=== PATIENT | male | born 2005 | race Two or more races ===

== ENCOUNTER 2023-07-10 22:41 | Emergency (ER) | payer MEDICAID, SELFPAY ==
[2023-07-10 22:44] VITALS: BP 161/88; PULSE 97; RESP 18; TEMP 36.9; O2SAT 97; BMI 39.3
--- OUTSIDE RECORDS SUMMARY | 2023-07-11 01:47 | XMS_ITS | Continuity of Care Document ---
Author Name Unknown Organization [facility] Address [address] [place] [address]- Care Team Providers Care Shearing Shed Worker Name Role Phone Slick CHEEK, Steve Batista Primary Care Physician Encounter [facility] [place] Date(s): 07/05/20 - 08/04/20 [facility] [address] [place] [id number]- Allergies, Adverse Reactions, Alerts Substance Reaction Severity Status NKA Active Medications dicyclomine 20 mg oral tablet 1 tablet = 20 mg, By Mouth, 2 times a day, # 180 tablet, 0 Refills, Maintenance, 07/03/19 15:57:03 EST Start Date: 07/03/19 Status: Ordered Social History Social History Type Response Smoking Status Never (less than 100 in lifetime); Tobacco user in household: No entered on: 07/03/19 Sex
--- OUTSIDE RECORDS SUMMARY | 2023-07-11 01:47 | XMS_ITS | Continuity of Care Document ---
Author Name Unknown Organization [facility] Address [address] [place] [address]- Care Team Providers Care Certified Low Vision Therapist Name Role Phone Slick CHEEK, Steve Batista Primary Care Physician [phone] Encounter [facility] [place] Date(s): 07/05/20 - 08/04/20 [facility] [address] [place] [address]- Allergies, Adverse Reactions, Alerts Substance Reaction Severity [...]
--- OUTSIDE RECORDS SUMMARY | 2023-07-11 01:47 | XMS_ITS | Continuity of Care Document ---
Author Name Unknown Organization [facility] Address Unknown Care Team Providers Care Diplomatic Interpreter Name Role Phone Slick CHEEK, Steve Batista Primary Care Physician [phone] Encounter [facility] – [place] Date(s): 04/11/21 - 05/11/21 [facility] [address] [place], [place] [address] Allergies, Adverse Reactions, Alerts Substance Reaction Severity Status NKA Active Medications dicyclomine 20 mg oral tablet 1 tablet = 20 mg, By Mouth, 2 times a day, # 180 tablet, 0 Refills, Maintenance, 07/03/19 15:57:03 EST Start Date: 07/03/19 Status: Ordered Vitamin D3 50,000 intl units oral capsule 1 capsule = 1,250 mcg, By Mouth, Every week, Please go for blood work after the 12 weeks are completed, # 12 capsule, 0 Refills, Maintenance, 04/11/21 13:48:00 EDT, [id number], Partial fill upon patient request if the prescription is... Start Date: 04/11/21 Stop Date: 07/04/21 Status: Ordered Social History Social History Type Response Smoking Status Never (less than 100 in lifetime); Tobacco user in household: No entered on: 07/03/19 Sex
--- OUTSIDE RECORDS SUMMARY | 2023-07-11 01:47 | XMS_ITS | Continuity of Care Document ---
Author Name Unknown Organization [facility] Address Unknown Care Team Providers Care Rail Transportation Tabeler Name Role Phone Slick CHEEK, Steve Batista Primary Care Physician Encounter [facility] [place] Date(s): 03/16/21 - 04/15/21 [facility] Attending Physician: Js Koehler Admitting Physician: Js Koehler Referring Physician: Js Koehler Allergies, Adverse Reactions, Alerts Substance Reaction Severity [...] capsule, 0 Refills, Maintenance, 04/11/21 13:48:00 EDT, [facility] #[id number], Partial fill upon patient request if the prescription is... Start Date: 04/11/21 Stop Date: 07/04/21 Status: Ordered Social History Social History Type Response Smoking Status Never (less than 100 in lifetime); Tobacco user in household: No entered on: 07/03/19 Sex
--- OUTSIDE RECORDS SUMMARY | 2023-07-11 01:47 | XMS_ITS | Continuity of Care Document ---
Author Name Unknown Organization [facility] Address [address] [place] [address]- Care Team Providers Care Clinical Assistant Name Role Phone Slick CHEEK, Steve Batista Primary Care Physician Encounter [facility] Date(s): 12/31/20 - 01/30/21 [facility] [address] [place] [id number] Attending Physician: Js Koehler Admitting Physician: AdmJs lopez Referring Physician: Admtr, Ar8 Allergies, Adverse Reactions, Alerts Substance Reaction Severity [...]
--- OUTSIDE RECORDS SUMMARY | 2023-07-11 01:47 | XMS_ITS | Continuity of Care Document ---
Author Name Unknown Organization [facility] Address [address] [place] [address]- Care Team Providers Care Animal Sitter Name Role Phone Slick CHEEK, Steve Batista Primary Care Physician Encounter [facility] [place] Date(s): 06/30/20 - 07/30/20 [facility] [address] [place] [phone]- Attending Physician: Js Koehler Admitting Physician: Js Koehler Referring Physician: Admtr Ar8 Allergies, Adverse Reactions, Alerts Substance Reaction [...]
--- OUTSIDE RECORDS SUMMARY | 2023-07-11 01:47 | XMS_ITS | Continuity of Care Document ---
Author Name Unknown Organization [facility] Address [address] [place] [address]- Care Team Providers Care Regulatory Analyst Name Role Phone Slick CHEEK, Steve Batista Primary Care Physician [place] [facility] [place] 01/30/21 [facility] [address] [place] [phone]- Attending Physician: Doris Gambino NP Admitting Physician: Doris Gambino NP Allergies, Adverse Reactions, Alerts Substance Reaction Severity [...]
--- OUTSIDE RECORDS SUMMARY | 2023-07-11 01:47 | XMS_ITS | Continuity of Care Document ---
Author Name Unknown Organization [facility] Address Unknown Care Team Providers Care Camp Nurse Name Role Phone Slick CHEEK, Steve Batista Primary Care Physician Encounter [facility] [place] Date(s): 04/11/21 - 05/11/21 [facility] [address] [place], [place] [address] Allergies, Adverse Reactions, Alerts Substance Reaction Severity [...] capsule, 0 Refills, Maintenance, 04/11/21 13:48:00 EDT, [facility] #[id number], Partial fill upon patient request if the prescription is... Start Date: 04/11/21 Stop Date: 07/04/21 Status: Ordered Social History Social History Type Response Smoking Status Never (less than 100 in lifetime); Tobacco user in household: No entered on: 07/03/19 Sex
--- OUTSIDE RECORDS SUMMARY | 2023-07-11 01:47 | XMS_ITS | Continuity of Care Document ---
Author Name Unknown Organization [facility] Address [address] [place] [address]- Care Team Providers Care Manager Data Warehouse Name Role Phone Slick CHEEK, Steve Batista Primary Care Physician Encounter [facility] [place] Date(s): 07/26/20 - 08/25/20 [facility] [address] [place] [phone]- Allergies, Adverse Reactions, Alerts Substance Reaction Severity [...]
--- OUTSIDE RECORDS SUMMARY | 2023-07-11 01:47 | XMS_ITS | Continuity of Care Document ---
Author Name Unknown Organization [facility] Address [address] [place] [phone]- Care Team Providers Care Teacher Instrumental Name Role Phone Steve Kruger MD Primary Care Physician Encounter [facility] Date(s): 07/24/19 - 07/24/[address] [address]- [facility] Attending Physician: Steve Kruger MD Allergies, Adverse Reactions, Alerts Substance Reaction Severity [...]
--- OUTSIDE RECORDS SUMMARY | 2023-07-11 01:47 | XMS_ITS | Continuity of Care Document ---
Author Name Unknown Organization [facility] Address [address] [place] [address]- Care Team Providers Care Learning And Development Director Name Role Phone Slick CHEEK, Steve Batista Primary Care Physician [id number] Date(s): 12/31/20 - 03/20/21 [facility] [address] [place] [address]- Attending Physician: Doris Gambino NP Admitting Physician: [...]
--- OUTSIDE RECORDS SUMMARY | 2023-07-11 01:47 | XMS_ITS | Continuity of Care Document ---
Author Name Unknown Organization [facility] Address [address] [place] [address]- Care Team Providers Care Tufting Supervisor Name Role Phone Slick CHEEK, Steve Batista Primary Care Physician [place] [facility] [place]s): 07/05/20 - 08/04/20 [facility] [address] [place] [phone]- Allergies, Adverse Reactions, Alerts Substance Reaction Severity [...]
--- NOTE | 2023-07-11 01:51 | ED.EAR ---
HPI - Ear Problem General Chief complaint: Ear Problems Stated complaint: left ear pain Time Seen by Provider: 07/11/23 01:46 Source: patient Mode of arrival: ambulatory Limitations: no limitations History of Present Illness HPI Narrative: patient comes to the emergency room complaining of left-sided ear pain that started about 5 hours ago. Patient denies any injury to the ear, denies swimming. Patient states that initially started out as itchy, then became pain. Patient took pain medication prior to arrival, feeling a bit better, but still painful. Patient denies any discharge. Patient denies headache, no sore throat Related Data Previous Rx's Medication Instructions Recorded acetic acid 2 % ear solution 3 drp otic (ear) left Q6H #15 mL 07/11/23 amoxicillin 500 mg-potassium 1 tab PO BID #10 tabs 07/11/23 clavulanate 125 mg tablet (Augmentin) ibuprofen 600 mg tablet 600 mg PO TID PRN fever or pain 07/11/23 #14 tabs Allergies Allergy/AdvReac Type Severity Reaction Status Date / Time No Known Allergies Allergy Verified 07/10/23 22:48 Review of Systems Review of Systems: Constitutional : No Weight loss, No Fever, No Chills, No Night Sweats, No Fatigue, No Malaise ENT/Mouth : No Hearing loss, complaining of left-sided Ear Pain, No Nasal Congestion, No Sinus Pain, No Hoarseness, No sore throat, No Rhinorrhea, No Swallowing Difficulty Eyes: No Eye Pain, No Swelling, No Redness, No Foreign Body, No Discharge, No Vision Changes Cardiovascular : No Chest Pain, No SOB, No Dyspnea on Exertion, No Orthopnea, No Edema, No Palpitations Respiratory : No Cough, No Sputum, No Wheezing, No Smoke Exposure, No Dyspnea Gastrointestinal : No Nausea, No Vomiting, No Diarrhea, No Constipation, No abdominal Pain, No Hematochezia, No Melena Genitourinary : no irregular bleeding, No Dysuria, No Urinary Frequency, No Hematuria, No Urinary Incontinence, No Urgency, No Flank Pain, No Urinary Flow Changes, No Hesitancy Musculoskeletal : No joint pain, No Myalgias, No Joint Swelling Skin : No Skin Lesions, No rash Neuro : No Weakness, No Numbness, No Paresthesias, No Loss of Consciousness, No Dizziness, No Headache Psych : No Anxiety/Panic, No Depression, No SI/HI/AH/VH, No Social Issues, Heme/Lymph: No Bruising, No Bleeding,No Lymphadenopathy Endocrine : No Polyuria, No Polydipsia, No Temperature Intolerance [facility] Social History Social History Advance Directives: No Advance Directives Information Provided: No Physical Exam Vital Signs: Vital Signs: Last Vital Signs Temp 98.5 F 07/10/23 22:44 Pulse 97 07/10/23 22:44 Resp 18 07/10/23 22:44 BP 161/88 H 07/10/23 22:44 Pulse Ox 97 07/10/23 22:44 O2 Del Method Room Air 07/10/23 22:44 BMI result Body Mass Index 39.3 Const: Other: Appearance: Alert. Oriented X3. No acute distress. Eyes: Pupils equal, round and reactive to light. ENT: Pharynx normal. ready within normal limits, left ear the sub bit of whitish yellowish discharge and mild erythema in the tympanic membrane, no perforation Neck: Normal inspection. Neck supple. No lymph nodes noted. No crepitus CVS: Normal heart rate and rhythm. Pulses normal. Normal S1 and S2 Respiratory: No respiratory distress. Breath sounds normal. No Wheezing. No rales Abdomen: Soft and nontender. No rigidity. No distention. Skin: Skin warm and dry. Normal skin color. Normal skin turgor. Extremities: No lower extremity edema. No Lacerations. No Rash Neuro: Oriented X 3. No motor deficit. No sensory deficit. Moving all extremities. No slurred speech. CN 2 through 12 grossly intact Psych: calm, cooperative, normal affect Medical Decision Making Medical Decision Making MDM Narrative: - I discussed the physical exam with the patient, patient likely having otitis media. Patient was given a dose of ibuprofen in the ED. Patient will go filler picker his medication a 24 hour pharmacy Differential Diagnosis Differential Diagnoses: The differential diagnosis associated with the presentation includes ( otitis media, otitis externa, otalgia) Discharge Plan Discharge Clinical Impression: Otitis media Patient Disposition: Home, Self-Care Instructions: Ear Infection (ED) Additional Instructions: Please follow-up with your primary care physician tomorrow. If you have any worsening or new symptoms, please return to the emergency room or call 911 Prescriptions: New amoxicillin-pot clavulanate [Augmentin] 500-125 mg tablet 1 tab PO BID Qty: 10 0RF acetic acid 2 % solution 3 p otic (ear) left Q6H Qty: 15 0RF Rx Instructions: apply to (cotton) wick; replace wick every 24 hours ibuprofen 600 mg tablet 600 mg PO TID PRN (Reason: fever or pain) Qty: 14 0RF
[2023-07-11 02:01] VITALS: BP 140/84; PULSE 94; RESP 18; TEMP 36.8; O2SAT 97
== END 2023-07-11 02:05 | disposition home or self-care (01) ==
PROVIDERS: Emergency Provider Emergency Medicine
DX: H66.92 Otitis media, unspecified, left ear (principal); H92.02 Otalgia, left ear
CPT/HCPCS: 99283

== ENCOUNTER 2024-02-08 15:53 | Outpatient (AMB) | payer OTHER, SELFPAY ==
--- NOTE | 2024-02-08 16:03 | A.OFFPC_ITS ---
Vital Signs 02/08/24 16:12 Height 5 ft 10.98 in Weight 278 lb 4 oz BMI 38.8 BP 112/72 Blood Pressure Location Lt brachial Position Sitting Pulse 89 Pulse Source Pulse Oximeter Temp 98.1 F Temp Source Oral Pulse Oximetry (%) 97 Oxygen Delivery Method Room Air Intake Visit Reasons: Establish Care Intake Note: patient here for new patient visit. Legal Biller Required: No Oven Stripper: Present Accompanied by: Mother Followed by:: res habilitation assistant present for exam. Allergies No Known Allergies Allergy (Verified 02/08/24 16:08) Medication List - Last Reconciled 02/08/24 by JOCE Grande No Known Home Meds Tobacco use date assessed: 02/08/24 Dental Screening Dental Screen Date: 02/08/24 Did you have a dental visit in the last 12 months?: Yes Did you have a dental problem in the last 6 months where you did not have access to dental care?: No Was dental information given to patient?: Patient has dentist HPI HPI Comments History of Present Illness Details This is a 19-year-old male with a past medical history of fatty liver disease, severe obesity, hyperlipidemia and vitamin-D deficiency presenting to [facility]. He needs a physical exam today. He is accompanied by his mother, Donna. Fatty liver disease-last seen by GI 2-3 years ago. Patient eats a lot of fast food. He usually skips breakfast. Drinks strictly water during the day. He has never seen a matrix bath operator. They would like his vitamin-D level checked. He has not currently on supplements. Hyperlipidemia-no recent labs. Nonsmoker. Endorses depression-a couple months. He is unhappy about his weight. Feels distant from mother. They argue a bit at home. Two younger brothers RN the house ages 13 and 9 years old. Feels unhappy. Sleeps well at night. Plays video games, occasionally goes out endplates frisbee and basketball. He has a female best friend , and they talk a lot. He worries about a lot of different things. No panic attacks. Denies illegal substance use, alcohol use. Interested in seeing a therapist. Left ear is itchy x months. He had ear pain at one point, and he was treated with ear drops for an infection. [facility] Medical History (Updated 02/08/24 @ 17:10 by JOCE Grande) Acanthosis nigricans Dermatitis of left ear canal Obesity (BMI 30-39.9) Hyperlipidemia Vitamin D deficiency Depression with anxiety Hepatic steatosis Surgical History (Updated 02/08/24 @ 16:22 by JOCE Grande) History of wisdom tooth extraction Family History (Updated 02/08/24 @ 17:02 by JOCE Grande) Paternal Grandfather Liver cancer Other Alcohol abuse Social History Housing: Apartment Patient Tobacco Use Status: Never used Tobacco e-Cigarette/Vaping Use: Never Used Second Hand Smoke Exposure: No service: No Current occupational status: employed Current occupation: [employer] Current occupational exposures/hazards: No Cognitive needs: No Hearing needs: No Vision needs: No Questionnaire PHQ-9 Over the last 2 weeks, how often have you been bothered by any of the following problems? 1. Little interest or pleasure in doing things: several days 2. Feeling down, depressed, or hopeless: more than half the days 3. Trouble falling or staying asleep, or sleeping too much: not at all 4. Feeling tired or having little energy: nearly every day 5. Poor appetite or overeating: more than half the days 6. Feeling bad about yourself - or that you are a failure or have let yourself or your family down: several days 7. Trouble concentrating on things, such as reading the newspaper or watching television: not at all 8. Moving or speaking so slowly that other people could have noticed. Or the opposite - being so fidgety or restless that you have been moving around a lot more than usual: not at all 9. Thoughts that you would be better off or of hurting yourself in some way: not at all Total score: 9 Depression Screening Interpretation: Positive (Referral placed) Depression Screening Done: Yes 32575 - PHQ-9 Billing: Yes Source: Developed by Drs. Jim Conway, Evelyn Levin, Diaz Osborn and colleagues, with an educational anita from [employer]. Thrive Questionnaire Date Thrive assessed: 02/08/24 I am a: Patient What is your living situation today?: I have a steady place to live Do you have trouble paying for medicines?: No Do you have trouble getting transportation to medical appointments?: No Do you have trouble paying your heating and electricity bill?: No Do you have trouble taking care of your child, family member or friend?: No Do you have trouble with day-to-day activities such as bathing, preparing meals, shopping, managing finances, etc.?: No Are you currently unemployed and looking for a job?: No Are you interested in more education?: No Please select the resources that you would like help with: None Currently or been in a relationship where the following occur: No concerns reported THRIVE Score: 0 AUDIT C Alcohol Use Questionnaire (AUDIT-C) 1. How often do you have a drink containing alcohol?: Never Total Score: 0 TRINA-7 AMB Questionnaire TRINA-7 Date TRINA - 7 assessed: 02/08/24 Feeling nervous, anxious, or on edge: 0 = Not at all Not being able to stop or control worryin = Not at all Worrying too much about different things: 1 = Several days Trouble relaxin = Not at all Being so restless that it is hard to sit still: 0 = Not at all Becoming easily annoyed or irritable: 1 = Several days Feeling afraid as if something awful might happen: 0 = Not at all Total TRINA-7 score (0-4 normal; 5-9 mild; 10-14 moderate; 15-21 severe): 2 Source: Developed by Drs. Jim Conway, Evelyn Levin, Diaz Osborn and colleagues, with an educational anita from [employer]. TRINA-7 Assessment Billing TRINA-7 Assessment Tool: TRINA-7 Assessment 99207 Review of Systems Const Details: Constitutional: No unexplained weight loss, fever, chills or night sweats. Eyes: No vision changes, blurry vision, double vision, eye pain, eye redness, eye discharge. ENT: No hearing loss, sneezing, congestion, runny nose or sore throat. Respiratory: No shortness of breath, cough or sputum production. Cardiovascular: No chest pain, chest pressure or chest discomfort. No palpitations or pedal edema. Gastrointestinal: No anorexia, nausea, vomiting or diarrhea. No abdominal pain or blood in stool. Genitourinary: No dysuria, hematuria, urinary frequency. Neurologic: No headache, dizziness, syncope, unilateral weakness, ataxia, numbness or tingling in the extremities. Musculoskeletal: No muscle pain, back pain, joint pain or swelling. Hematologic/Lymphatics: No bleeding or bruising. No painful lymph nodes. Skin: see HPI Endocrine: No cold or heat intolerance. No polyuria or polydipsia. Psychiatric: No SI/HI. Physical exam (Primary Care) Vital Signs: Last Vital Signs Temp 98.1 F 02/08/24 16:12 Pulse 89 02/08/24 16:12 BP 112/72 02/08/24 16:12 Pulse Ox 97 02/08/24 16:12 Oxygen Delivery Method Room Air 02/08/24 16:12 BMI result Body Mass Index 38.8 Tobacco/Smoking Status: Tobacco use Status Tobacco use date assessed 02/08/24 02/08/24 16:11 Patient Tobacco Use Status Never used Tobacco 02/08/24 16:11 e-Cigarette/Vaping Use Never Used 02/08/24 16:11 Depression Screening Interpretation: Positive (Referral placed) Currently or been in a relationship where the following occur: No concerns reported Const Other: Constitutional: Alert, in no distress. Head: Normocephalic. Eyes: Pupils are equal, round and reactive to light. Extraocular muscles intact. Ear, Nose and Throat: TMs normal. Normal nasal mucosa. No nasal discharge. No oral lesions. Neck: Supple, Full range of motion. No lymphadenopathy. No palpable thyroid masses. Respiratory: Clear to auscultation. Cardiovascular: S1 S2 regular. No murmurs. Gastrointestinal: Abdomen soft, non-tender, non-distended. Normal bowel sounds. No palpable masses. Genitourinary: No detectable hernias or palpable masses. Neurologic: No focal neurological deficits. Symmetric patellar reflexes. Moves all extremities spontaneously. Sensation intact bilaterally. Skin: Acanthosis nigricans rash noted on the neck. The left ear canal has dry, flaking skin and mild erythema. Musculoskeletal: No gross deformities. Normal range of motion. Extremities: Warm and well perfused. No clubbing, cyanosis or edema. 3+ peripheral pulses bilaterally. Psychiatric: Normal mood and affect Assessment and Plan Assessment & Plan (1) Routine physical examination: Code(s): Z00.00 - Encounter for general adult medical examination without abnormal findings Plan: Patient is seen today for a routine physical. As part of this visit we reviewed the following issues, which are considered and essential part of preventative health in this age group: - Testicular cancer screening, which includes self exam teaching - Blood pressure screening annually - Cholesterol screening - Nutritional and exercise counseling - Counseling of injury prevention including fire prevention, smoke alarms and seat belt usage - Screening for depression - Prevention of and/or testing for infectious diseases - patient has been sexually active but declined screening tests - Recommendations about immunizations-per mom up-to-date. Records transfer pending. - Recommendation of an eye exam - Screening for substance abuse (2) Hepatic steatosis: Code(s): K76.0 - Fatty (change of) liver, not elsewhere classified Plan: Check LFTs. Referred to Gastroenterology. Refer to dietitian. Recommended low-cholesterol diet. Avoid fried foods. Avoid alcohol. Increase fiber and lean protein and vegetables. (3) Depression with anxiety: Code(s): F41.8 - Other specified anxiety disorders Plan: Discussed options for treatment. Patient will start with therapy. Defers medications for now after discussion. Check TSH. (4) Vitamin D deficiency: Code(s): E55.9 - Vitamin D deficiency, unspecified Plan: Check vitamin-D level. (5) Hyperlipidemia: Code(s): E78.5 - Hyperlipidemia, unspecified Qualifiers: Hyperlipidemia type: pure hypercholesterolemia Qualified Code(s): E78.00 - Pure hypercholesterolemia, unspecified Plan: Recommended Mediterranean diet, exercise to promote weight loss. Refer to dietitian. Check lipid profile. (6) Obesity (BMI 30-39.9): Code(s): E66.9 - Obesity, unspecified Plan: We will start with screening labs and referral to dietitian. We briefly discussed GLP 1 medications. We can revisit this if desired by the patient. (7) Dermatitis of left ear canal: Code(s): H60.542 - Acute eczematoid otitis externa, left ear Plan: Prescribed fluocinolone oil. Plan Follow up in 2 weeks to review lab results. Orders: Orders Lipid Panel Today E55.9 - Vitamin D deficiency, unspecified, E66.9 - Obesity, unspecified, K76.0 - Fatty (change of) liver, not elsewhere classified, L83 - Acanthosis nigricans, R53.83 - Other fatigue, Z13.6 - Encounter for screening for cardiovascular disorders Comprehensive Met. Panel Today E55.9 - Vitamin D deficiency, unspecified, E66.9 - Obesity, unspecified, K76.0 - Fatty (change of) liver, not elsewhere classified, L83 - Acanthosis nigricans, R53.83 - Other fatigue, Z13.6 - Encounter for screening for cardiovascular disorders Complete Blood Count no Diff Today E55.9 - Vitamin D deficiency, unspecified, E66.9 - Obesity, unspecified, K76.0 - Fatty (change of) liver, not elsewhere classified, L83 - Acanthosis nigricans, R53.83 - Other fatigue, Z13.6 - Encounter for screening for cardiovascular disorders Vitamin B12 Today E55.9 - Vitamin D deficiency, unspecified, E66.9 - Obesity, unspecified, K76.0 - Fatty (change of) liver, not elsewhere classified, L83 - Acanthosis nigricans, R53.83 - Other fatigue, Z13.6 - Encounter for screening for cardiovascular disorders TSH reflex Free T4 Today E55.9 - Vitamin D deficiency, unspecified, E66.9 - Obesity, unspecified, K76.0 - Fatty (change of) liver, not elsewhere classified, L83 - Acanthosis nigricans, R53.83 - Other fatigue, Z13.6 - Encounter for screening for cardiovascular disorders Hemoglobin A1c Today E55.9 - Vitamin D deficiency, unspecified, E66.9 - Obesity, unspecified, K76.0 - Fatty (change of) liver, not elsewhere classified, L83 - Acanthosis nigricans, R53.83 - Other fatigue, Z13.6 - Encounter for screening for cardiovascular disorders Vitamin D 1,25 dihydroxy Today E55.9 - Vitamin D deficiency, unspecified, E66.9 - Obesity, unspecified, K76.0 - Fatty (change of) liver, not elsewhere classified, L83 - Acanthosis nigricans, R53.83 - Other fatigue, Z13.6 - Encounter for screening for cardiovascular disorders Referrals Gastroenterology Referral K76.0 - Fatty (change of) liver, not elsewhere classified Psychology Referral F41.8 - Other specified anxiety disorders Professional [employer] Nutrition Referral E66.9 - Obesity, unspecified, E78.5 - Hyperlipidemia, unspecified, K76.0 - Fatty (change of) liver, not elsewhere classified Medications: New fluocinolone 0.01% 5 drops topically to affected ear 2 times a day for 10 days 10 days 118.28 mL 0RF Discontinued acetic acid 2% apply to (cotton) wick; replace wick every 24 hours Discontinued Reason: Patient no longer taking 3 drps otic (ear) left Q6H 15 mL 0RF amoxicillin-pot clavulanate 500-125 mg (Augmentin) Discontinued Reason: Patient no longer taking 1 tab PO BID 10 tabs 0RF ibuprofen Discontinued Reason: Patient no longer taking 600 mg PO TID PRN 14 tabs 0RF fever or pain Coding Level of Care Code New Pt Prev Care 18-39yr(70661 Diagnoses Routine physical examination Z00.00 Hepatic steatosis K76.0 Depression with anxiety F41.8 Vitamin D deficiency E55.9 Pure hypercholesterolemia E78.00 Hyperlipidemia type: pure hypercholesterolemia Obesity (BMI 30-39.9) E66.9 Dermatitis of left ear canal H60.542 Additional Codes TRINA-7 Assessment Billing - TRINA-7 Assessment Tool: TRINA-7 Assessment 68965 ([id number])
[2024-02-08 16:12] VITALS: BP 112/72; PULSE 89; TEMP 36.7; O2SAT 97; BMI 38.8
== END 2024-02-08 16:56 | disposition home or self-care (01) ==
PROVIDERS: PCP Physician Assistant Medical; Visit Provider Physician Assistant Medical
DX: Z00.00 Encounter for general adult medical examination without abnormal findings (principal); K76.0 Fatty (change of) liver, not elsewhere classified; F41.8 Other specified anxiety disorders; E55.9 Vitamin D deficiency, unspecified; E78.00 Pure hypercholesterolemia, unspecified; E66.9 Obesity, unspecified; H60.542 Acute eczematoid otitis externa, left ear
CPT/HCPCS: 96127; 99385

== ENCOUNTER 2024-02-19 09:18 | Outpatient (REF) | payer OTHER, SELFPAY ==
[2024-02-19 10:20] LABS: Hematocrit 48.3 % (42.0-52.0); Hemoglobin 16.3 g/dl (14.0-18.0); Mean Corpuscular HGB Conc 33.7 g/dl (31.0-36.0); Mean Corpuscular Hemoglobin 28.3 pg (27.0-33.0); Mean Corpuscular Volume 83.9 fL (80.0-98.0); Mean Platelet Volume 11.8 fL (9.4-12.4); Platelet Count 252 X10*3/uL (160-400); Red Blood Count 5.76 X10*6/uL (4.60-5.80); Red Cell Distribution Width 12.4 % (11.0-16.0); White Blood Count 9.9 X10*3/uL (4.8-10.8)
[2024-02-19 10:33] LABS: Estimated Average Glucose 100 mg/dL; Hemoglobin A1c % 5.1 % (<6.0)
[2024-02-19 11:03] LABS: Alanine Aminotransferase 64 U/L (0-40); Albumin Level 4.4 g/dL (3.5-5.0); Alkaline Phosphatase 102 U/L (39-117); Anion Gap 13 (12-20); Aspartate Amino Transferase 41 U/L (5-37); Bilirubin Total 0.7 mg/dL (0.0-1.0); Blood Urea Nitrogen 13 mg/dL (9-16); Calcium 9.6 mg/dL (8.4-10.2); Carbon Dioxide 27 mmol/L (22-29); Chloride 105 mmol/L (96-108); Cholesterol 165 mg/dL (<200); Estimated Glomerular Filt Rate > 60; Glucose Random 90 mg/dL (60-115); HDL Cholesterol 32 mg/dL (>40); LDL Cholesterol Calculated 104 mg/dL (<100); Potassium 4.1 mmol/L (3.3-5.1); Sodium 141 mmol/L (135-145); Total Protein 7.9 g/dL (6.5-8.0); Triglycerides 145 mg/dL (<150)
[2024-02-19 11:24] LABS: TSH reflex Free T4 1.93 uIU/mL (0.32-4.0)
[2024-02-19 11:32] LABS: Vitamin B12 342 pg/mL (200-900)
[2024-02-22 17:13] LABS: VITAMIN D (1,25 OH) D3 62 pg/mL; Vit D (1,25-Dihydroxy) Total 62 pg/mL (18-72); Vitamin D (1,25 OH) D2 <8 pg/mL
== END 2024-02-19 09:19 | disposition home or self-care (01) ==
LOC: HO.LAB 09:18
PROVIDERS: PCP Physician Assistant Medical; Visit Provider Physician Assistant Medical
DX: R53.83 Other fatigue (principal); E55.9 Vitamin D deficiency, unspecified; K76.0 Fatty (change of) liver, not elsewhere classified; E66.9 Obesity, unspecified; L83 Acanthosis nigricans; Z13.6 Encounter for screening for cardiovascular disorders
CPT/HCPCS: 36415; 80053; 80061; 82607; 82652; 83036; 84443; 85027

== ENCOUNTER 2024-03-03 08:30 | Outpatient (AMB) | payer OTHER, SELFPAY ==
[2024-03-03 08:33] VITALS: BMI 39.1
--- NOTE | 2024-03-03 08:33 | MHC.AMNUTRGE ---
VS Expanded 03/03/24 08:33 03/06/24 10:02 Height 5 ft 10.98 in 5 ft 10.98 in Weight 280 lb 6.848 oz 280 lb BMI 39.1 39.1 Intake Visit Reasons: Obesity/CONFIRMED Allergies No Known Allergies Allergy (Verified 02/08/24 16:08) Nutrition Presentation Details: Pt presents for MNT for obesity, hepatic steatosis, hyperlipidemia. Patient was referred by Cynthia Barnes, PCP Patient reports often skipping meals during the day leading having larger portions in the evening. Patient reports the most meals are prepared at home by family member Food frequency fruit 0-1/day fish: 0/wk dairy: Greater than 5-6 servings per day (mostly cheese ) Non starchy vegetables: two servings per day Fried foods 3 to 4 times a week Pastries in similar foods greater than 2 a day physical activity: working /gardening ETOH/Smoking: denies BS Monitoring Most Recent Diabetes Results: Cholesterol 165 mg/dL (<200) 02/19/24 HDL Cholesterol 32 mg/dL (>40) L 02/19/24 Triglycerides 145 mg/dL (<150) 02/19/24 Creatinine 1.02 mg/dL (0.5-1.4) 02/19/24 Blood Urea Nitrogen 13 mg/dL (9-16) 02/19/24 Sodium 141 mmol/L (135-145) 02/19/24 Potassium 4.1 mmol/L (3.3-5.1) 02/19/24 Chloride 105 mmol/L (96-108) 02/19/24 Carbon Dioxide 27 mmol/L (22-29) 02/19/24 Calcium 9.6 mg/dL (8.4-10.2) 02/19/24 AST 41 U/L (5-37) H 02/19/24 ALT 64 U/L (0-40) H 02/19/24 Total Protein 7.9 g/dL (6.5-8.0) 02/19/24 Albumin 4.4 g/dL (3.5-5.0) 02/19/24 BXF-Acotqlk-Pp.Jeor Equation Height: 5 ft 10.98 in Weight: 280 lb Resting Metabolic Rate: 2297.28 Calculated Activity Level: Mild Activity Calories Needed to Maintain Weight: 3158.76 Diagnosis Nutrition problem #1: food nutri know defi As related to (etiology) #1: diagnosis As evidenced by (sign/symptom) #1: knowledge deficit of diet [facility] Medical History (Updated 02/08/24 @ 17:10 by JOCE Grande) Acanthosis nigricans Dermatitis of left ear canal Obesity (BMI 30-39.9) Hyperlipidemia Vitamin D deficiency Depression with anxiety Hepatic steatosis Surgical History (Updated 02/08/24 @ 16:22 by JOCE Grande) History of wisdom tooth extraction Family History (Updated 02/08/24 @ 17:03 by JOCE Grande) Paternal Grandfather Liver cancer Other Alcohol abuse Social History Housing: Apartment Patient Tobacco Use Status: Never used Tobacco e-Cigarette/Vaping Use: Never Used Second Hand Smoke Exposure: No service: No Current occupational status: employed Current occupation: maintnance Current occupational exposures/hazards: No Cognitive needs: No Hearing needs: No Vision needs: No Assessment & Plan Assessment & Plan (1) Obesity (BMI 30-39.9): Code(s): E66.9 - Obesity, unspecified Category: Medical Plan: Wt: 127Kg ( February/2024 ) Est kcal needs as per MSJ: 3200 (40% carb, 30% protein/fat) Est fluid needs as per 25-30 ml/d: Est prot per day as per 1 g/kg bw: Recommend fiber intake : 8-10 g per day and gradually increase to 25-28 g per day for women and 35-38 g for men or as tolerated Recommend sodium intake per day : less than 2000 mg Educated patient on: ( R = reviewed V = verbalizes understanding N/R = needs review N/A = not applicable Food sources of carbohydrate, adequate serving sizes and its role in various health conditions: R Differences between complex carbohydrates a simple carbohydrates, role of fiber in diet: R V N/R Lean protein sources of foods: R V NR Differences between types of fats and role in diet (mono on saturated fat fatty acids, saturated fatty acids, trans fats): R V N/R Food sources of sodium in salt and healthy modifications for heart health in kidney health: R V R/V Vitamins and minerals: R V N/R Healthy plate method concept: R Physical activity: Benefits a precaution: R Practice mindful eating: R Patient Instructions: Have a fruit /veg smoothie as afterwork snack choose baked foods reducing on fried and high fat foods - see education material from [facility] and meal ideas as discussed and provided Coding Level of Care Code Nutr Indiv Intake (30791) Diagnoses Obesity (BMI 30-39.9) E66.9 Time Spent (min) 30
[2024-03-06 10:02] VITALS: BMI 39.1
== END 2024-03-03 09:01 | disposition home or self-care (01) ==
PROVIDERS: PCP Physician Assistant Medical; Visit Provider Dietitian, Registered
DX: E66.9 Obesity, unspecified (principal)

== ENCOUNTER → 2024-03-03 08:30 | Outpatient (BNVA) | payer OTHER, SELFPAY | PROVIDERS: PCP Physician Assistant Medical; Visit Provider Dietitian, Registered | DX: E66.9 Obesity, unspecified (principal); Z68.39 Body mass index [BMI] 39.0-39.9, adult | CPT/HCPCS: 97802 ==

== ENCOUNTER 2024-04-17 08:58 | Outpatient (AMB) | payer OTHER, SELFPAY ==
[2024-04-17 09:04] VITALS: BMI 38.6
--- NOTE | 2024-04-17 09:04 | A.OFFVIS_ITS ---
VS Expanded 04/17/24 09:04 Height 5 ft 10.98 in Weight 276 lb 10.882 oz BMI 38.6 Intake Visit Reasons: obesity/CONFIRMED Allergies No Known Allergies Allergy (Verified 02/08/24 16:08) Nutrition Presentation Details: Pt presents for MNT f/u for obesity Pt reports working on keeping physically active and drinking more water , less sugary beverages Notices meal at home are prepared with less fat fish- not including non starchy veg- not including BS Monitoring Most Recent Diabetes Results: Cholesterol 165 mg/dL (<200) 02/19/24 HDL Cholesterol 32 mg/dL (>40) L 02/19/24 Triglycerides 145 mg/dL (<150) 02/19/24 Creatinine 1.02 mg/dL (0.5-1.4) 02/19/24 Blood Urea Nitrogen 13 mg/dL (9-16) 02/19/24 Sodium 141 mmol/L (135-145) 02/19/24 Potassium 4.1 mmol/L (3.3-5.1) 02/19/24 Chloride 105 mmol/L (96-108) 02/19/24 Carbon Dioxide 27 mmol/L (22-29) 02/19/24 Calcium 9.6 mg/dL (8.4-10.2) 02/19/24 AST 41 U/L (5-37) H 02/19/24 ALT 64 U/L (0-40) H 02/19/24 Total Protein 7.9 g/dL (6.5-8.0) 02/19/24 Albumin 4.4 g/dL (3.5-5.0) 02/19/24 [facility] Medical History (Updated 04/11/24 @ 15:01 by OSMAN Oneill) Acanthosis nigricans Dermatitis of left ear canal Obesity (BMI 30-39.9) Hyperlipidemia Vitamin D deficiency Depression with anxiety Hepatic steatosis Surgical History (Updated 02/08/24 @ 16:22 by JOCE Grande) History of wisdom tooth extraction Family History (Updated 02/08/24 @ 17:03 by JOCE Grande) Paternal Grandfather Liver cancer Other Alcohol abuse Social History Housing: Apartment Patient Tobacco Use Status: Never used Tobacco e-Cigarette/Vaping Use: Never Used Second Hand Smoke Exposure: No service: No Current occupational status: employed Current occupation: [employer] Current occupational exposures/hazards: No Cognitive needs: No Hearing needs: No Vision needs: No Assessment & Plan Assessment & Plan (1) Obesity (BMI 30-39.9): Code(s): E66.9 - Obesity, unspecified Category: Medical Plan: Wt: 127Kg ( February/2024 ), 125 kg (05/06) Est kcal needs as per MSJ: 3200 (40% carb, 30% protein/fat) Est fluid needs as per 25-30 ml/d: 3800 Est prot per day as per 1 g/kg bw: 125 Recommend fiber intake : 8-10 g per day and gradually increase to 25-28 g per day for women and 35-38 g for men or as tolerated Recommend sodium intake per day : less than 2000 mg Educated patient on: ( R = reviewed V = verbalizes understanding N/R = needs review N/A = not applicable * Food sources of carbohydrate, adequate serving sizes and its role in various health conditions: R * Differences between complex carbohydrates a simple carbohydrates, role of fiber in diet: R * Lean protein sources of foods: R V NR * Differences between types of fats and role in diet (mono on saturated fat fatty acids, saturated fatty acids, trans fats): R V N/R * Food sources of sodium in salt and healthy modifications for heart health in kidney health: R V R/V * Vitamins and minerals: R V N/R * Healthy plate method concept: R * Physical activity: Benefits a precaution: R * Practice mindful eating: R Patient Instructions: continue working on reudicng sugars (mix low sugar cereal [facility] sugar cereal Try oatmeal as your meal Coding Level of Care Code Nutr Indiv Subseq (95163) Diagnoses Obesity (BMI 30-39.9) E66.9 Time Spent (min) 30
== END 2024-04-17 09:29 | disposition home or self-care (01) ==
PROVIDERS: PCP Physician Assistant Medical; Visit Provider Dietitian, Registered
DX: E66.9 Obesity, unspecified (principal)

== ENCOUNTER → 2024-04-17 08:58 | Outpatient (BNVA) | payer OTHER, SELFPAY | PROVIDERS: PCP Physician Assistant Medical; Visit Provider Dietitian, Registered | DX: E66.9 Obesity, unspecified (principal); Z71.3 Dietary counseling and surveillance; Z68.38 Body mass index [BMI] 38.0-38.9, adult | CPT/HCPCS: 97803 ==

== ENCOUNTER 2024-04-18 10:38 | Outpatient (REF) | payer OTHER, SELFPAY ==
[2024-04-18 12:39] LABS: Alanine Aminotransferase 52 U/L (0-40); Albumin Level 4.4 g/dL (3.5-5.0); Alkaline Phosphatase 87 U/L (39-117); Anion Gap 10 (12-20); Aspartate Amino Transferase 35 U/L (5-37); Bilirubin Total 0.5 mg/dL (0.0-1.0); Blood Urea Nitrogen 12 mg/dL (9-16); Calcium 9.6 mg/dL (8.4-10.2); Carbon Dioxide 26 mmol/L (22-29); Chloride 107 mmol/L (96-108); Estimated Glomerular Filt Rate > 60; Glucose Random 87 mg/dL (60-115); Potassium 4.4 mmol/L (3.3-5.1); Sodium 139 mmol/L (135-145); Total Protein 8.1 g/dL (6.5-8.0)
[2024-04-18 12:59] LABS: Ferritin 308 ng/mL (20-250)
[2024-04-19 07:28] LABS: Hepatitis A Antibody IgG REACTIVE (Nonreactive); Hepatitis A Antibody IgM 0.16 Index (0-0.79); ~Hepatitis A Antibody IgG 10.93 S/CO (0.00-0.99); ~Hepatitis A Antibody IgM Nonreactive (Nonreactive)
[2024-04-21 13:09] LABS: Alpha Fetoprotein 2.4 ng/mL (<6.1)
[2024-04-21 14:09] LABS: Mitochondrial Antibodies NEGATIVE (NEGATIVE)
[2024-04-22 08:23] LABS: Anti Nuclear Antibody Screen NEGATIVE (NEGATIVE)
[2024-04-24 08:03] LABS: Smooth Muscle Antibody <20 U (<20)
[2024-04-26 02:13] LABS: FIB-ALT 35 U/L (9-46); FIB-Alpha-2-Macroglobulin 213 mg/dL (106-279); FIB-Apolipoprotein A1 108 mg/dL (94-176); FIB-GGT 24 U/L (3-70); FIB-Haptoglobin 210 mg/dL (43-212); FIB-Total Bilirubin 0.5 mg/dL (0.2-1.2); Liver Fibrosis Score 0.13; Liver Fibrosis Stage F0; Nec Inflam Act Grade A0; Nec Inflam Act Score 0.15
== END 2024-04-18 10:39 | disposition home or self-care (01) ==
LOC: HO.LAB 10:38
PROVIDERS: PCP Physician Assistant Medical; Visit Provider Nurse Practitioner
DX: K76.0 Fatty (change of) liver, not elsewhere classified (principal); R76.8 Other specified abnormal immunological findings in serum
CPT/HCPCS: 36415; 80053; 81596; 82105; 82728; 86015; 86038; 86381; 86708; 86709; 99202

== ENCOUNTER 2024-04-18 10:38 | Outpatient (AMB) | payer OTHER, SELFPAY ==
[2024-04-18 10:40] VITALS: BP 135/79; PULSE 75; BMI 38.2
--- NOTE | 2024-04-18 10:40 | A.OFFVIS_ITS ---
Vital Signs 04/18/24 10:40 Height 5 ft 10.98 in Weight 273 lb 13.026 oz BMI 38.2 BP 135/79 Blood Pressure Location Lt brachial Position Sitting Pulse 75 Intake Visit Reasons: Fatty liver Intake Note: New patient in office today for fatty liver. CC: Patient denies having any GI symptoms. Allergies No Known Allergies Allergy (Verified 04/18/24 10:43) HPI HPI Steatosis of liver: Details: 19-year-old male here for initial evaluation of fatty liver. He is referred by Rebekah Barnes of [facility] [place]. 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 NO sgn/sx of liver disease. No known FHX liver disease. He does not drink nETOH on any regular basis. He has been losing weight recently r/ this job. Educagted RE; likely fattyl iver. ROV 8 weeks. [facility] Medical History Acanthosis nigricans Dermatitis of left ear canal Obesity (BMI 30-39.9) Hyperlipidemia Vitamin D deficiency Depression with anxiety Hepatic steatosis Surgical History History of wisdom tooth extraction Family History Paternal Grandfather Liver cancer Other Alcohol abuse Social History Housing: Apartment Patient Tobacco Use Status: Never used Tobacco e-Cigarette/Vaping Use: Never Used Second Hand Smoke Exposure: No service: No Current occupational status: employed Current occupation: maintnance Current occupational exposures/hazards: No Cognitive needs: No Hearing needs: No Vision needs: No Review of Systems Const Denies fatigue, Denies fever(s), Denies night sweats, Denies poor appetite and Reports weight loss ENT Reports Normal hearing present, Denies dental pain, Denies dysphagia, Denies hearing loss, Denies mouth pain, Denies odynophagia, Denies throat swelling, Denies tongue swelling and Reports other (Dentition adequate) Card Reports no additional complaints Resp Reports no additional complaints GI Details: Denies abdominal pain, Denies melena, Denies bloating, Denies hematochezia, Denies constipation, Denies GI cramping, Denies dysphagia, Denies excessive flatus, Denies early satiety, Denies heartburn, Denies diarrhea, Denies nausea, Denies odynophagia, Denies vomiting and Denies hematemesis Skin/Breast Denies pruritus, Denies lesions, Denies rash and Denies jaundice Neuro Reports Normal hearing present and Denies Abnormal speech present Endo Denies fatigue Aller/Immun Denies throat swelling and Denies tongue swelling Physical Exam Vital Signs: Last Vital Signs Pulse 75 04/18/24 10:40 BP 135/79 04/18/24 10:40 BMI result Body Mass Index 38.2 Const General: cooperative, no acute distress, well developed and well groomed Nutritional Appearance: well nourished and obese morbidly obese Orientation/consciousness: oriented to person, oriented to place and oriented to time Limitations: No language barrier HEENT Head: Yes normocephalic and Yes atraumatic Eyes General: appearance normal, both eyes and all related structures Pupils: Equal, round and reactive pupils present Neck Neck: Yes normal visual inspection and Yes no lymphadenopathy Thyroid: Thyroid normal Resp Effort & Inspection: normal respiratory effort and able to speak in complete sentences Auscultation: clear to auscultation bilaterally Cardio Rate: regular rate Rhythm: regular rhythm Heart sounds: Normal, physiologic split S2 sound present Peripheral pulses: radial pulses present and posterior tibial pulses present GI Inspection: No distended, Yes Abdominal panniculus present, Yes obesity and Yes striae Palpation (GI): Soft to palpation, nontender, no guarding, not rigid and No hepatosplenomegaly present Percussion: Yes normal to percussion Auscultation: normal bowel sounds Rectal Exam - Male: Yes deferred Skin General skin exam: no rashes or lesions noted, turgor normal, skin not dry, no jaundice, No spider nevi and no striae Rashes: no rashes Nails: normal Neuro General: oriented to person, oriented to place and oriented to time Cranial nerves: Yes Equal, round and reactive pupils present and Yes Normal hearing present Speech: No Abnormal speech present Extrem General: Yes normal to inspection, No clubbing, No cyanosis and No edema Psych Appearance: grossly normal and well kempt Mental Status: mental status grossly normal Speech and movement: Normal speech and movement present Affect: normal affect Attitude: cooperative Thought process: Normal thought process present and not confabulating Thought content: Normal thought content present Insight: Limited insight present (Psych) Judgement: Limited judgement present (Psych) Results Reviewed Results Reviewed: Laboratory Tests 12/19/18 02/19/24 14:25 09:30 WBC 9.9 Hgb 16.3 Hct 48.3 Plt Count 252 Estimated GFR > 60 Total Bilirubin 0.7 AST 41 H ALT 64 H Alkaline Phosphatase 102 TSH 1.93 Hepatitis A IgG Ab REACTIVE Hep Bs Antigen NEGATIVE Hep Bs Antibody NONREACTIVE Hep B Core Total Ab NONREACTIVE Hepatitis C Ab (EIA) NONREACTIVE Assessment & Plan Assessment & Plan (1) Hepatic steatosis: Code(s): K76.0 - Fatty (change of) liver, not elsewhere classified Category: Medical (2) Hepatitis A antibody positive: Code(s): R76.8 - Other specified abnormal immunological findings in serum Category: Medical Plan 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 NO sgn/sx of liver disease. No known FHX liver disease. He does not drink nETOH on any regular basis. He has been losing weight recently r/ this job. Educagted RE; likely fattyl iver. ROV 8 weeks. Orders: Orders Alpha Fetoprotein Today K76.0 - Fatty (change of) liver, not elsewhere classified Mitochondrial Antibody Today K76.0 - Fatty (change of) liver, not elsewhere classified Ferritin Today K76.0 - Fatty (change of) liver, not elsewhere classified Comprehensive Met. Panel Today K76.0 - Fatty (change of) liver, not elsewhere classified Liver Fibrosis Pnl Today K76.0 - Fatty (change of) liver, not elsewhere classified Smooth Muscle Antibody Today K76.0 - Fatty (change of) liver, not elsewhere classified SANDHYA Reflex Titer and Pattern Today K76.0 - Fatty (change of) liver, not elsewhere classified US abdomen complete Today K76.0 - Fatty (change of) liver, not elsewhere classified Hepatitis A IgM Today K76.0 - Fatty (change of) liver, not elsewhere classified, R76.8 - Other specified abnormal immunological findings in serum Hepatitis A IgG Today K76.0 - Fatty (change of) liver, not elsewhere classified, R76.8 - Other specified abnormal immunological findings in serum Coding Level of Care Code New Pt Level 3 (55229) Diagnoses Hepatic steatosis K76.0 Hepatitis A antibody positive R76.8
== END 2024-04-18 11:06 | disposition home or self-care (01) ==
PROVIDERS: PCP Physician Assistant Medical; Visit Provider Nurse Practitioner
DX: K76.0 Fatty (change of) liver, not elsewhere classified (principal); R76.8 Other specified abnormal immunological findings in serum
CPT/HCPCS: 99203

== ENCOUNTER → 2024-06-13 11:17 | Outpatient (BNVA) | payer OTHER, SELFPAY | PROVIDERS: PCP Physician Assistant Medical; Visit Provider Nurse Practitioner | DX: K76.0 Fatty (change of) liver, not elsewhere classified (principal); E66.01 Morbid (severe) obesity due to excess calories; Z68.38 Body mass index [BMI] 38.0-38.9, adult | CPT/HCPCS: 99212 ==

== ENCOUNTER → 2024-06-13 11:17 | Outpatient (AMB) | payer OTHER, SELFPAY ==
--- NOTE | 2024-06-13 11:19 | A.OFFVIS_ITS ---
Vital Signs 06/13/24 11:37 Height 5 ft 10.98 in Weight 279 lb 1.683 oz BMI 38.9 BP 143/80 H Blood Pressure Location Rt brachial Position Sitting Pulse 87 Intake Visit Reasons: 8 week follow up Intake Note: Patient in office today in follow up of hepatic steatosis. CC: He states that he missed the US appt because he was working and forgot. Denies having any GI concerns today. 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 NO sgn/sx of liver disease. No known FHX liver disease. He does not drink nETOH on any regular basis. He has been losing weight recently r/ this job. Educagted RE; likely fattyl iver. ROV 8 weeks. Orders: Orders Alpha Fetoprotein Today K76.0 - Fatty (change of) liver, not elsewhere classi fied Mitochondrial Antibody Today K76.0 - Fatty (change of) liver, not elsewhere classified Ferritin Today K76.0 - Fatty (change of) liver, not elsewhere classified Comprehensive Met. Panel Today K76.0 - Fatty (change of) liver, not elsewhere classified Liver Fibrosis Pnl Today K76.0 - Fatty (change of) liver, not elsewhere classified Smooth Muscle Antibody Today K76.0 - Fatty (change of) liver, not elsewhere classified SANDHYA Reflex Titer and Pattern Today K76.0 - Fatty (change of) liver, not elsewhere classified US abdomen complete Today K76.0 - Fatty (change of) liver, not elsewhere classified Hepatitis A IgM Today K76.0 - Fatty (change of) liver, not elsewhere classified, R76.8 - Other specified abnormal immunological findings in serum Hepatitis A IgG Today K76.0 - Fatty (change of) liver, not elsewhere classified, R76.8 - Other specified abnormal immunological findings in serum LABS Laboratory Tests 04/18/24 11:19 Ferritin 308 H Total Bilirubin 0.5 AST 35 ALT 52 H Alkaline Phosphatase 87 Liver Fibrosis Stage F0 Alpha Fetoprotein 2.4 SANDHYA Screen NEGATIVE Anti-Mitochondrial Ab NEGATIVE Anti-Smooth Muscle Ab <20 Hepatitis A IgG Ab REACTIVE Hepatitis A IgM Ab Nonreactive Laboratory Tests 12/14/18 09:10 Total Bilirubin 0.4 AST 49 H ALT 82 H Alkaline Phosphatase 144 H US OF ABDOMEN TODAY'S VISIT We review all of the labs and I made him aware that this appears to be fatty liver. He is educated that he needs to work on slow steady weight loss, avoid ance of alcohol and should he become diabetic control of his blood sugars to assure continued liver health going forward. Apparently he had to cancel the ultrasound so will try to get this rescheduled. Return office visit in 6 months, next appointment get an HIV screen. [facility] Medical History Acanthosis nigricans Dermatitis of left ear canal Obesity (BMI 30-39.9) Hyperlipidemia Vitamin D deficiency Depression with anxiety Hepatic steatosis Surgical History History of wisdom tooth extraction Family History Paternal Grandfather Liver cancer Other Alcohol abuse Social History Housing: Apartment Patient Tobacco Use Status: Never used Tobacco e-Cigarette/Vaping Use: Never Used Second Hand Smoke Exposure: No service: No Current occupational status: employed Current occupation: maintnance Current occupational exposures/hazards: No Cognitive needs: No Hearing needs: No Vision needs: No Review of Systems Const Denies fatigue, Denies fever(s), Denies night sweats, Denies poor appetite and Denies weight loss Eyes Reports requires corrective lenses ENT Reports Normal hearing present, Denies dental pain, Denies dysphagia, Denies hearing loss, Denies mouth pain, Denies odynophagia, Denies throat swelling, Denies tongue swelling and Reports other (Dentition adequate) GI Details: Denies abdominal pain, Denies melena, Denies bloating, Denies hematochezia, Denies constipation, Denies GI cramping, Denies dysphagia, Denies excessive flatus, Denies early satiety, Denies heartburn, Denies diarrhea, Denies nausea, Denies odynophagia, Denies vomiting and Denies hematemesis Skin/Breast Denies pruritus, Denies lesions, Denies rash and Denies jaundice Neuro Reports Normal hearing present and Denies Abnormal speech present Endo Denies fatigue Aller/Immun Denies throat swelling and Denies tongue swelling Physical Exam Vital Signs: Last Vital Signs Pulse 87 06/13/24 11:37 BP 143/80 H 06/13/24 11:37 BMI result Body Mass Index 38.9 Const General: cooperative, no acute distress, well developed and well groomed Nutritional Appearance: well nourished, obese and overweight Orientation/consciousness: oriented to person, oriented to place and oriented to time Limitations: No language barrier, ambulation with cane, ambulation with walker and wheelchair HEENT Head: Yes normocephalic and Yes atraumatic Eyes General: appearance normal, both eyes and all related structures Pupils: Equal, round and reactive pupils present Neck Neck: Yes normal visual inspection and Yes no lymphadenopathy Thyroid: Thyroid normal Resp Effort & Inspection: normal respiratory effort and able to speak in complete sentences Auscultation: clear to auscultation bilaterally Cardio Rate: regular rate Rhythm: regular rhythm Heart sounds: Normal, physiologic split S2 sound present Peripheral pulses: radial pulses present and posterior tibial pulses present GI Inspection: No distended and No Abdominal panniculus present Palpation (GI): Soft to palpation, nontender, no guarding, not rigid, No hepatosplenomegaly present and Hepatosplenomegaly present Percussion: Yes normal to percussion Auscultation: normal bowel sounds Rectal Exam - Male: Yes deferred Skin General skin exam: no rashes or lesions noted, turgor normal, skin not dry, no jaundice, No spider nevi and no striae Rashes: no rashes Nails: normal Neuro General: oriented to person, oriented to place and oriented to time Cranial nerves: Yes Equal, round and reactive pupils present and Yes Normal hearing present Speech: No Abnormal speech present Extrem General: Yes normal to inspection, No clubbing, No cyanosis and No edema Psych Thought process: Normal thought process present and not confabulating Thought content: Normal thought content present Insight: Good insight present (Psych) Judgement: Good judgement present (Psych) Results Reviewed Results Reviewed: Laboratory Tests 04/18/24 11:19 Ferritin 308 H Total Bilirubin 0.5 AST 35 ALT 52 H Alkaline Phosphatase 87 Liver Fibrosis Stage F0 Alpha Fetoprotein 2.4 SANDHYA Screen NEGATIVE Anti-Mitochondrial Ab NEGATIVE Anti-Smooth Muscle Ab <20 Hepatitis A IgG Ab REACTIVE Hepatitis A IgM Ab Nonreactive Laboratory Tests 12/14/18 09:10 Total Bilirubin 0.4 AST 49 H ALT 82 H Alkaline Phosphatase 144 H Assessment & Plan Assessment & Plan (1) CHRISTIANSON (nonalcoholic steatohepatitis): Comment: BASELINE LABS 11:19 Ferritin 308 H Total Bilirubin 0.5 AST 35 ALT 52 H Alkaline Phosphatase 87 Liver Fibrosis Stage F0 Alpha Fetoprotein 2.4 SANDHYA Screen NEGATIVE Anti-Mitochondrial Ab NEGATIVE Anti-Smooth Muscle Ab <20 Hepatitis A IgG Ab REACTIVE Hepatitis A IgM Ab Nonreactive 12/14/18 09:10 Total Bilirubin 0.4 AST 49 H ALT 82 H Alkaline Phosphatase 144 H CURRENT LABS ULTRASOUND OF THE ABDOMEN Code(s): K75.81 - Nonalcoholic steatohepatitis (CHRISTIANSON) Category: Medical (2) Morbid obesity: Code(s): E66.01 - Morbid (severe) obesity due to excess calories Category: Medical Plan We review all of the labs and I made him aware that this appears to be fatty liver. He is educated that he needs to work on slow steady weight loss, avoidance of alcohol and should he become diabetic control of his blood sugars to assure continued liver health going forward. He has been working at losing weight and it is actually showing quite well in his liver functions if you look at them over time they are normalizing. Apparently he had to cancel the ultrasound so will try to get this rescheduled. Return office visit in 6 months US OF ABDOMEN Coding Level of Care Code Est Pt Level 4 (20824) Diagnoses CHRISTIANSON (nonalcoholic steatohepatitis) K75.81 Morbid obesity E66.01
[2024-06-13 11:37] VITALS: BP 143/80; PULSE 87; BMI 38.9
== END ==
LOC: HO.HGI 11:17
PROVIDERS: PCP Physician Assistant Medical; Visit Provider Nurse Practitioner
DX: K75.81 Nonalcoholic steatohepatitis (NASH) (principal); E66.01 Morbid (severe) obesity due to excess calories
CPT/HCPCS: 99214

== ENCOUNTER 2024-06-17 09:24 | Outpatient (AMB) | payer OTHER, SELFPAY ==
[2024-06-17 09:31] VITALS: BMI 38.5
--- NOTE | 2024-06-17 09:31 | A.OFFVIS_ITS ---
VS Expanded 06/17/24 09:31 Height 5 ft 10.98 in Weight 275 lb 12.772 oz BMI 38.5 Intake Visit Reasons: obesity/CONFIRMED Allergies No Known Allergies Allergy (Verified 06/13/24 11:44) Nutrition Presentation Details: Pt presents for MNT f/u for obesity, hyperlipidemia, fatty liver Pt reports keeping physically active (active at work), contemplating new foods to try (oats, vegetables) Reports meals are home are made with less fats , and limiting eating out family meals to once/wk fruits 1/day veg: not including fish 0-1/m fried foods 3 x/wk BS Monitoring Most Recent Diabetes Results: Cholesterol 165 mg/dL (<200) 02/19/24 HDL Cholesterol 32 mg/dL (>40) L 02/19/24 Triglycerides 145 mg/dL (<150) 02/19/24 Creatinine 1.07 mg/dL (0.5-1.4) 04/18/24 Blood Urea Nitrogen 12 mg/dL (9-16) 04/18/24 Sodium 139 mmol/L (135-145) 04/18/24 Potassium 4.4 mmol/L (3.3-5.1) 04/18/24 Chloride 107 mmol/L (96-108) 04/18/24 Carbon Dioxide 26 mmol/L (22-29) 04/18/24 Calcium 9.6 mg/dL (8.4-10.2) 04/18/24 AST 35 U/L (5-37) 04/18/24 ALT 52 U/L (0-40) H 04/18/24 Total Protein 8.1 g/dL (6.5-8.0) H 04/18/24 Albumin 4.4 g/dL (3.5-5.0) 04/18/24 [facility] Medical History Acanthosis nigricans Dermatitis of left ear canal Obesity (BMI 30-39.9) Hyperlipidemia Vitamin D deficiency Depression with anxiety Hepatic steatosis Surgical History History of wisdom tooth extraction Family History Paternal Grandfather Liver cancer Other Alcohol abuse Social History Housing: Apartment Patient Tobacco Use Status: Never used Tobacco e-Cigarette/Vaping Use: Never Used Second Hand Smoke Exposure: No service: No Current occupational status: employed Current occupation: maintnance Current occupational exposures/hazards: No Cognitive needs: No Hearing needs: No Vision needs: No Assessment & Plan Assessment & Plan (1) Obesity (BMI 30-39.9): Code(s): E66.9 - Obesity, unspecified Category: Medical Plan: Wt: 127Kg ( February/2024 ), 125 kg (05/06), 06/05 Est kcal needs as per MSJ: 3200 (40% carb, 30% protein/fat) Est fluid needs as per 25-30 ml/d: 3800 Est prot per day as per 1 g/kg bw: 125 Recommend fiber intake : 8-10 g per day and gradually increase to 25-28 g per day for women and 35-38 g for men or as tolerated Recommend sodium intake per day : less than 2000 mg Educated patient on: ( R = reviewed V = verbalizes understanding N/R = needs review N/A = not applicable * Food sources of carbohydrate, adequate serving sizes and its role in various health conditions: R * Differences between complex carbohydrates a simple carbohydrates, role of fiber in diet: R * Lean protein sources of foods: R V NR * Differences between types of fats and role in diet (mono on saturated fat fatty acids, saturated fatty acids, trans fats): R * Food sources of sodium in salt and healthy modifications for heart health in kidney health: R V R/V * Vitamins and minerals: R V N/R * Healthy plate method concept: R * Physical activity: Benefits a precaution: R * Practice mindful eating: R Patient Instructions: Continue working on choosing low fat food: choose lower fat protein sources for breakfast sandwiches - see list of options Try 1 fiber rich food twice a week (broccoli, oats, spinach , salads - as example Continue physically active Coding Level of Care Code Nutr Indiv Subseq (72506) Diagnoses Obesity (BMI 30-39.9) E66.9 Time Spent (min) 30
== END 2024-06-17 09:55 | disposition home or self-care (01) ==
LOC: HO.ENCR 09:24
PROVIDERS: PCP Physician Assistant Medical; Visit Provider Dietitian, Registered
DX: E66.9 Obesity, unspecified (principal)

== ENCOUNTER → 2024-06-17 09:24 | Outpatient (BNVA) | payer OTHER, SELFPAY | PROVIDERS: PCP Physician Assistant Medical; Visit Provider Dietitian, Registered | DX: E66.9 Obesity, unspecified (principal); E78.5 Hyperlipidemia, unspecified; K76.0 Fatty (change of) liver, not elsewhere classified; Z68.38 Body mass index [BMI] 38.0-38.9, adult; Z71.3 Dietary counseling and surveillance | CPT/HCPCS: 97803 ==

== ENCOUNTER 2024-08-28 09:00 | Outpatient (AMB) | payer OTHER, SELFPAY ==
[2024-08-28 09:10] VITALS: BMI 39.6
--- NOTE | 2024-08-28 09:10 | A.OFFVIS_ITS ---
VS Expanded 08/28/24 09:10 Height 5 ft 10.9 in Weight 282 lb 13.649 oz BMI 39.6 Intake Visit Reasons: Obesity, Fatty liver Allergies No Known Allergies Allergy (Verified 06/13/24 11:44) Nutrition Presentation Details: Pt presents for MNT f/u for obesity, fatty liver Pt reports working on including higher fiber foods in smoothies Noticed less activity since weather changed Meal of choice bagel cream egg/garcia, water tacos (ground beef/cheese) same for dinner including fruits smoothies (strawberries/banana/water) BS Monitoring Most Recent Diabetes Results: Creatinine 1.07 mg/dL (0.5-1.4) 04/18/24 Blood Urea Nitrogen 12 mg/dL (9-16) 04/18/24 Sodium 139 mmol/L (135-145) 04/18/24 Potassium 4.4 mmol/L (3.3-5.1) 04/18/24 Chloride 107 mmol/L (96-108) 04/18/24 Carbon Dioxide 26 mmol/L (22-29) 04/18/24 Calcium 9.6 mg/dL (8.4-10.2) 04/18/24 AST 35 U/L (5-37) 04/18/24 ALT 52 U/L (0-40) H 04/18/24 Total Protein 8.1 g/dL (6.5-8.0) H 04/18/24 Albumin 4.4 g/dL (3.5-5.0) 04/18/24 [facility] Medical History Acanthosis nigricans Dermatitis of left ear canal Obesity (BMI 30-39.9) Hyperlipidemia Vitamin D deficiency Depression with anxiety Hepatic steatosis Surgical History History of wisdom tooth extraction Family History Paternal Grandfather Liver cancer Other Alcohol abuse Social History Housing: Apartment Patient Tobacco Use Status: Never used Tobacco e-Cigarette/Vaping Use: Never Used Second Hand Smoke Exposure: No service: No Current occupational status: employed Current occupation: [employer] Current occupational exposures/hazards: No Cognitive needs: No Hearing needs: No Vision needs: No Assessment & Plan Assessment & Plan (1) Obesity (BMI 30-39.9): Code(s): E66.9 - Obesity, unspecified Category: Medical Plan: Wt: 127Kg ( February/2024 ), 125 kg (05/06), 06/05, 128 Kg (08/28/24) Est kcal needs as per MSJ: 3200 (40% carb, 30% protein/fat) Est fluid needs as per 25-30 ml/d: 3800 Est prot per day as per 1 g/kg bw: 125 Recommend fiber intake : 8-10 g per day and gradually increase to 25-28 g per day for women and 35-38 g for men or as tolerated Recommend sodium intake per day : less than 2000 mg Educated patient on: ( R = reviewed V = verbalizes understanding N/R = needs review N/A = not applicable * Food sources of carbohydrate, adequate serving sizes and its role in various health conditions: R * Differences between complex carbohydrates a simple carbohydrates, role of fiber in diet: R * Lean protein sources of foods: R * Differences between types of fats and role in diet (mono on saturated fat fatty acids, saturated fatty acids, trans fats): R * Food sources of sodium in salt and healthy modifications for heart health in kidney health: R V R/V * Vitamins and minerals: R V N/R * Healthy plate method concept: R * Physical activity: Benefits a precaution: R * Practice mindful eating: R Patient Instructions: Continue working on increasing fiber int he diet (add carrots to fruit smoothie ) have oatmeal twice a week Continue working on reducing on fats by choosing ground turkey (1/2 ground turkey and 1/2 beef as example) Keep physically active : 30 minutes after work (walking,dancing,any physical activity you like) Coding Level of Care Code Nutr Indiv Subseq (34319) Diagnoses Obesity (BMI 30-39.9) E66.9 Time Spent (min) 30
== END 2024-08-28 09:39 | disposition home or self-care (01) ==
PROVIDERS: PCP Physician Assistant Medical; Visit Provider Dietitian, Registered
DX: E66.9 Obesity, unspecified (principal)

== ENCOUNTER → 2024-08-28 09:00 | Outpatient (BNVA) | payer OTHER, SELFPAY | PROVIDERS: PCP Physician Assistant Medical; Visit Provider Dietitian, Registered | DX: E66.9 Obesity, unspecified (principal); Z68.39 Body mass index [BMI] 39.0-39.9, adult | CPT/HCPCS: 97803 ==

== ENCOUNTER 2024-10-09 11:12 | Outpatient (AMB) | payer OTHER, SELFPAY ==
--- NOTE | 2024-10-09 11:37 | A.OFFVIS_ITS ---
VS Expanded 10/09/24 11:53 Height 5 ft 10.9 in Weight 282 lb 10.122 oz BMI 39.5 Intake Visit Reasons: obesity Allergies No Known Allergies Allergy (Verified 06/13/24 11:44) Nutrition Presentation Details: Pt presents for MNT f/u for obesity Pt admits to keeping sedentary working on incorporating foods with fiber (fruits/veg in smoothies) , has questions regarding fiber rich food sources BS Monitoring Most Recent Diabetes Results: Creatinine 1.07 mg/dL (0.5-1.4) 04/18/24 Blood Urea Nitrogen 12 mg/dL (9-16) 04/18/24 Sodium 139 mmol/L (135-145) 04/18/24 Potassium 4.4 mmol/L (3.3-5.1) 04/18/24 Chloride 107 mmol/L (96-108) 04/18/24 Carbon Dioxide 26 mmol/L (22-29) 04/18/24 Calcium 9.6 mg/dL (8.4-10.2) 04/18/24 AST 35 U/L (5-37) 04/18/24 ALT 52 U/L (0-40) H 04/18/24 Total Protein 8.1 g/dL (6.5-8.0) H 04/18/24 Albumin 4.4 g/dL (3.5-5.0) 04/18/24 [facility] Medical History Acanthosis nigricans Dermatitis of left ear canal Obesity (BMI 30-39.9) Hyperlipidemia Vitamin D deficiency Depression with anxiety Hepatic steatosis Surgical History History of wisdom tooth extraction Family History Paternal Grandfather Liver cancer Other Alcohol abuse Social History Housing: Apartment Patient Tobacco Use Status: Never used Tobacco e-Cigarette/Vaping Use: Never Used Second Hand Smoke Exposure: No service: No Current occupational status: employed Current occupation: maintnance Current occupational exposures/hazards: No Cognitive needs: No Hearing needs: No Vision needs: No Assessment & Plan Assessment & Plan (1) Obesity (BMI 30-39.9): Code(s): E66.9 - Obesity, unspecified Category: Medical Plan: Wt: 127Kg ( February/2024 ), 125 kg (05/06), 10, 128 Kg (08/28/24), 128 (11/04) Est kcal needs as per MSJ: 3200 (40% carb, 30% protein/fat) Est fluid needs as per 25-30 ml/d: 3800 Est prot per day as per 1 g/kg bw: 125 Recommend fiber intake : 8-10 g per day and gradually increase to 25-28 g per day for women and 35-38 g for men or as tolerated Recommend sodium intake per day : less than 2000 mg Educated patient on: ( R = reviewed V = verbalizes understanding N/R = needs review N/A = not applicable * Food sources of carbohydrate, adequate serving sizes and its role in various health conditions: R * Differences between complex carbohydrates a simple carbohydrates, role of fiber in diet: R * Lean protein sources of foods: R * Differences between types of fats and role in diet (mono on saturated fat fatty acids, saturated fatty acids, trans fats): R * Food sources of sodium in salt and healthy modifications for heart health in kidney health: R V R/V * Vitamins and minerals: R V N/R * Healthy plate method concept: R * Physical activity: Benefits a precaution: R * Practice mindful eating: R Patient Instructions: See list of fiber rich foods sources , gradually incorporate foods with fiber (example mix bran flakes with current cereals, have cornmeal, beans/lentils mashed have a fruit/veg smoothie with yogurt as a meal or snack incorporate physical activity, walk 1 hour 3 times/wk choose water, herb/fruit infused flavored water, beverages wtih no sugar added Coding Level of Care Code Nutr Indiv Subseq (80174) Diagnoses Obesity (BMI 30-39.9) E66.9 Time Spent (min) 30
[2024-10-09 11:53] VITALS: BMI 39.5
--- OUTSIDE RECORDS SUMMARY | 2024-10-09 13:29 | XMS_ITS | Clinical Summary ---
Author Organization [facility] Address [address] [place] [address] Phone Care Team Providers Care Dot Compliance Manager Name Role Phone Unavailable Primary Care Provider Unavailabl e Immunizations Immunization Administration Dates Next Due DTaP 5 01/17/2007, 5,2003, 003,2003 H1N1 08/04/2009,07/05/2009 Hep A, ped/adol 01/25/2011 Hep B, ped/adol 05/31/2004,2003,2003 Hib (HbOC) 05/31/2004 Hib (PRP-T) 2003,2003,2003 IPV 01/17/2007, 4,2003, 003 Influenza Split 07/24/2012,04/26/2011 Influenza, injectable, trivalent 08/04/2009 Influenza, intranasal, quadrivalent 07/24/2013 Influenza, intranasal, trivalent 04/13/2010 MMR 01/12/2004 MMRV 01/17/2007 Pneumococcal Conjugate 05/31/2004,2002,2003, 003 Varicella 01/12/2004 Family History Relation Name Status Comments Brother Brother: Asthma Mother Alive Mother: Alive a nd well Other Family history of Sudden /[place] under age 55, Family history of Diabetes mellitus, Family history of Asthma Social History Tobacco Use Types Packs/Day Years Used Date Smoking Tobacco: Never Assessed Sex and Gender Information Value Date Recorded Sex Assigned at Not on file Legal Sex Male 4:51 PM EDT Gender Identity Not on file Sexual Orientation Not on file Last Filed Vital Signs Vital Sign Reading Time Taken Comments Blood Pressure 109/68 07/24/2013 12:00 AM EST Pulse 68 07/24/2013 12:00 AM EST Temperature 36.6 ??C (97.8 ??F) 11/13/2012 12:00 AM E DT Respiratory Rate - - Oxygen Saturation - - Inhaled Oxygen Concentration - - Weight 51.3 kg (113 lb) 07/24/2013 12:00 AM EST Height 146.1 cm (4' 9.5 ) 03/05/2013 12:00 AM ED T Body Mass Index - - Plan of Treatment Health Maintenance Due Date Last Done Comments Hepatitis A Vaccines (2 of 2 - 2-dose series) 07/27/2011 01/25/2011 DTaP,Tdap,and Td Vaccines (6 - Tdap) 2014 01/17/2007, 09/22/2004, 2003, Additional history exists HPV Vaccines (1 - Male 3-dose series) 2018 Men B Vaccine (1 of 2 - Standard) 2019 Influenza Vaccines (#1) 2024 07/24/20 13, 07/24/2012, 04/26/2011, Additional history exists COVID-19 Vaccine ( - ) 04/13/2024 HIB Vaccines Completed 05/31/2004, 06/14, 2003, Additional history exists Hepatitis B Vaccines Completed 05/31/2004, 2003, 2003 Pneumococcal Vaccine Completed 05/31/2004, 2003, 2003, Additional history exists IPV Vaccines Completed 01/17/2007, 09/14, 2003, Additional history exists MMR Vaccines Completed 01/17/2007, 01/12/2004 Varicella Vaccines Completed 01/17/2007, 01/12/2004 Meningococcal Vaccine Aged Out No nitin ashley eligible based on patient's age to complete this topic
--- OUTSIDE RECORDS SUMMARY | 2024-10-09 13:29 | XMS_ITS | Encounter Summary ---
Author Organization [facility] Address [address] [place] [address] Phone Care Team Providers Care Central Supply Tech Name Role Phone Christine Jenkins MD Primary Care Provider [phone] Encounter Details Date Type Department Care Team (Late st Contact Info) Description 03/29/2017 Conversion Encounter [facility] [place] [address] [place] [address] Social History Tobacco Use Types Packs/Day Years Used Date Smoking Tobacco: Never Assessed Sex and Gender Information Value Date Recorded Sex Assigned at Not on file Legal Sex Male 4:51 PM EDT Gender Identity Not on file Sexual Orientation Not on file documented as of this encounter Plan of Treatment Not on file documented as of this encounter Visit Diagnoses Not on filedocumented in this encounter Care Teams Central Supply Tech Relationship Specialty Start Date End Date Christine Jenkins MD [address] [place] [address] PCP - General 03/23/17 09/20/22 documented as of this encounter
== END 2024-10-09 12:06 | disposition home or self-care (01) ==
PROVIDERS: PCP Physician Assistant Medical; Visit Provider Dietitian, Registered
DX: E66.9 Obesity, unspecified (principal)

== ENCOUNTER → 2024-10-09 11:12 | Outpatient (BNVA) | payer OTHER, SELFPAY | PROVIDERS: PCP Physician Assistant Medical; Visit Provider Dietitian, Registered | DX: E66.9 Obesity, unspecified (principal); Z68.39 Body mass index [BMI] 39.0-39.9, adult | CPT/HCPCS: 97803 ==

== ENCOUNTER 2025-02-10 09:48 | Outpatient (AMB) | payer OTHER, SELFPAY ==
[2025-02-10 10:05] VITALS: BMI 35.7
--- NOTE | 2025-02-10 10:05 | A.OFFVIS_ITS ---
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 Including fiber rich foods: 1 fruit/day , beans 3x/wk BS Monitoring Most Recent Diabetes Results: Creatinine, (0.5-1.4) 1.07 mg/dL 04/18/24 BUN, (9-16) 12 mg/dL 04/18/24 Sodium, (135-145) 139 mmol/L 04/18/24 Potassium, (3.3-5.1) 4.4 mmol/L 04/18/24 Chloride, (96-108) 107 mmol/L 04/18/24 Carbon Dioxide, (22-29) 26 mmol/L 04/18/24 Calcium, (8.4-10.2) 9.6 mg/dL 04/18/24 AST, (5-37) 35 U/L 04/18/24 ALT, (0-40) 52 U/L H 04/18/24 Total Protein, (6.5-8.0) 8.1 g/dL H 04/18/24 Albumin, (3.5-5.0) 4.4 g/dL 04/18/24 XVG-Lyzizce-Lp.Jeor Equation Height: 5 ft 10 in Weight: 250 lb Resting Metabolic Rate: 2140.86 Calculated Activity Level: Mild Activity Calories Needed to Maintain Weight: 2943.68 [facility] Medical History Acanthosis nigricans Dermatitis of left ear canal Obesity (BMI 30-39.9) Hyperlipidemia Vitamin D deficiency Depression with anxiety Hepatic steatosis Surgical History History of wisdom tooth extraction Family History Paternal Grandfather Liver cancer Other Alcohol abuse Social History Housing: Apartment Patient Tobacco Use Status: Never used Tobacco e-Cigarette/Vaping Use: Never Used Second Hand Smoke Exposure: No service: No Current occupational status: employed Current occupation: [employer] Current occupational exposures/hazards: No Cognitive needs: No Hearing needs: No Vision needs: No Assessment & Plan Assessment & Plan (1) Obesity (BMI 30-39.9): Code(s): E66.9 - Obesity, unspecified Category: Medical Plan: Wt: 127Kg ( February/2024 ), 125 kg (05/06), 06/05, 128 Kg (08/28/24), 128 (11/04), 113.6 (kg) Est kcal needs as per MSJ: 3000 (40% carb, 30% protein/fat) Est fluid needs as per 25-30 ml/d: 3400 Est prot per day as per 1 g/kg bw: 114 Recommend fiber intake : 8-10 g per day and gradually increase to 25-28 g per day for women and 35-38 g for men or as tolerated Recommend sodium intake per day : less than 2000 mg Educated patient on: ( R = reviewed V = verbalizes understanding N/R = needs review N/A = not applicable * Food sources of carbohydrate, adequate serving sizes and its role in various health conditions: R * Differences between complex carbohydrates a simple carbohydrates, role of fiber in diet: R * Lean protein sources of foods: R * Differences between types of fats and role in diet (mono on saturated fat fatty acids, saturated fatty acids, trans fats): R * Food sources of sodium in salt and healthy modifications for heart health in kidney health: R V R/V * Vitamins and minerals: R in foods * Healthy plate method concept: R * Physical activity: Benefits a precaution: R * Practice mindful eating: R Patient Instructions: Include foods with fiber (example have cheerios or bran flakes mixed with current cereal) Try sweet potatoes once a week Add carrots to beans in place of potatoes Continue working on reducing sugars weight loss goal by next follow up in 3 weeks, 240 lbs Coding Level of Care Code Nutr Indiv Subseq (75113) Diagnoses Obesity (BMI 30-39.9) E66.9 Time Spent (min) 30
--- OUTSIDE RECORDS SUMMARY | 2025-02-10 10:41 | XMS_ITS | Clinical Summary ---
Author Organization [employer] Address [address] [place] [address] Care Team Providers Care Silk Presser Name Role Phone Destinee Abbott IVELISSE Primary Care Provider [phone] Social History Tobacco Use Types Packs/Day Years Used Date Smoking Tobacco: Never Assessed Sex and Gender Information Value Date Recorded Sex Assigned at Male 06/12/2022 10:22 AM EDT Legal Sex Male 10:22 AM EDT Gender Identity Male 06/12/2022 10:22 AM EDT Sexual Orientation Don't know 06/12/2022 10 :22 AM EDT Last Filed Vital Signs Vital Sign Reading Time Taken Comments Blood Pressure 122/80 07/05/2021 12:11 AM EST Pulse 76 07/05/2021 12:11 AM EST Temperature - - Respiratory Rate - - Oxygen Saturation - - Inhaled Oxygen Concentration - - Weight 125 kg (275 lb 3.2 oz) 07/05/2021 12:11 A M EST Height 182.2 cm (5' 11.75 ) 07/05/2021 12:11 AM EST Body Mass Index 37.58 07/05/2021 12:11 AM EST Plan of Treatment Health Maintenance Due Date Last Done Comments Chlamydia and Gonorrhea Screening 2003 Depression Screening 2003 Disability Screening 2003 Alcohol/Substance Use Screening 2015 Tobacco Screening 2015 Family Planning (PISQ) 2018 Meningococcal B Vaccine (1 of 2 - Standard) 2019 DTaP/Tdap/Td Vaccines (7 - Td or Tdap) 02/11/2024 02/10/2014, 01/17/2007, 09/22/2004, Additional history exists COVID-19 Vaccine ( season) 2024 05/01/2021, 04/08/2021 Influenza Vaccine (Season Ended) 2025 07/05/2021, 05/28/2019, 05/22/2018, Additional history exists Zoster Vaccines (1 of 2) 2053 RSV Patients and Patients Aged 60 years or older (1 - 1-dose 75+ series) 2078 HIB Vaccines Completed 01/17/2007, 05/13, 2003, Additional history exists IPV Vaccines Completed 02/10/2014, 02/2007, 2003, Additional history exists Pneumococcal Vaccine: Pediatrics (0 to 5 Years) and At-Risk Patients (6 to 49) Years Completed 02/10/2014, 05/31/2004, 2003, Additional history exists HPV Vaccines Completed 08/19/2014, 10/2013, 02/10/2014 Hepatitis A Vaccines Completed 04/09/2015, 01/26/20 11 Meningococcal Vaccine Completed 05/28/2019, 015 Hepatitis B Vaccines Completed 10/16/2019, 08/21/2019, 05/28/2019, Additional history exists RSV under 20 months Aged Out No longe r eligible based on patient's age to complete this topic Rotavirus Vaccines Aged Out No longer eligible based on patient's age to complete this topic Care Teams Silk Presser Relationship Specialty Start Date End Date Destinee Abbott ANP [address] [place] [id number] PCP - General Family Medicine 02/17/22
[2025-02-10 11:31] VITALS: BMI 35.9
== END 2025-02-10 10:44 | disposition home or self-care (01) ==
LOC: HO.ENCR 09:49
PROVIDERS: PCP Physician Assistant Medical; Visit Provider Dietitian, Registered
DX: E66.9 Obesity, unspecified (principal)

== ENCOUNTER → 2025-02-10 09:48 | Outpatient (BNVA) | payer OTHER, SELFPAY | PROVIDERS: PCP Physician Assistant Medical; Visit Provider Dietitian, Registered | DX: Z71.3 Dietary counseling and surveillance (principal); E66.9 Obesity, unspecified | CPT/HCPCS: 97803 ==

== ENCOUNTER 2025-05-07 09:30 | Outpatient (REF) | payer OTHER, SELFPAY ==
--- NOTE | ~2025-05-07 | US_ITS ---
CLINICAL HISTORY: K75.81 - Nonalcoholic steatohepatitis (CHRISTIANSON) US abdomen complete Comparison: None provided Findings: The visualized pancreas neck and body are normal. Remainder of pancreas is obscured by bowel gas. The visualized aorta and inferior vena cava are normal caliber. The liver is normal in size, right lobe length is 17.4 cm. Diffusely increased echogenicity of the liver parenchyma, multifocal small areas of geographic hypoechogenicity without appreciable vascular flow near gallbladder fossa. No suspicious hepatic lesion is seen. No intrahepatic bile duct dilatation. The common duct is 3 mm in diameter. The gallbladder is normal. Negative sonographic Hall sign. The main portal vein is patent with antegrade flow. The right kidney is normal, 11.1 cm in length. The left kidney is normal, 12.2 cm in length. The spleen is normal, 12.5 cm in length. No free fluid in the abdomen. Impression: Hepatomegaly with focal fatty sparing near gallbladder fossa. This document has been electronically signed by: Galina Braswell MD on 05/07/2025 12:51:33
== END 2025-05-07 09:31 | disposition home or self-care (01) ==
LOC: HO.US 09:30
PROVIDERS: PCP Physician Assistant Medical; Visit Provider Nurse Practitioner
DX: K75.81 Nonalcoholic steatohepatitis (NASH) (principal)
CPT/HCPCS: 76700

== ENCOUNTER → 2025-05-07 09:33 | Outpatient (BNV) | payer OTHER, SELFPAY | PROVIDERS: PCP Physician Assistant Medical; Visit Provider Radiology Diagnostic Radiology | DX: R16.0 Hepatomegaly, not elsewhere classified (principal); K76.0 Fatty (change of) liver, not elsewhere classified | CPT/HCPCS: 76700 ==

== ENCOUNTER 2025-05-18 09:01 | Outpatient (AMB) | payer OTHER, SELFPAY ==
[2025-05-18 09:15] VITALS: BMI 35.9
--- NOTE | 2025-05-18 09:15 | A.OFFVIS_ITS ---
VS Expanded 05/18/25 09:15 Height 5 ft 10 in Weight 250 lb 3.594 oz BMI 35.9 Intake Visit Reasons: T2DM Allergies No Known Allergies Allergy (Verified 06/13/24 11:44) Nutrition Presentation Details: Pt presents for MNT for obesity Pt has hx of hepatic steatosis Pt has lost about 18 lbs since 04/2025, via diet modifications reports working on reducing sugars, having lean protein foods and keeping physically active. Pt is active at work /yard work/maintenance Pt considers himself a picky eater however is open to trying new foods denies alcohol/smoking EEQ-Ociyuvn-Zo.Jeor Equation Calculated Activity Level: Mild Activity [facility] Medical History Acanthosis nigricans Dermatitis of left ear canal Obesity (BMI 30-39.9) Hyperlipidemia Vitamin D deficiency Depression with anxiety Hepatic steatosis Surgical History History of wisdom tooth extraction Family History Paternal Grandfather Liver cancer Other Alcohol abuse Social History Housing: Apartment Patient Tobacco Use Status: Never used Tobacco e-Cigarette/Vaping Use: Never Used Second Hand Smoke Exposure: No service: No Current occupational status: employed Current occupation: maintnance Current occupational exposures/hazards: No Cognitive needs: No Hearing needs: No Vision needs: No Assessment & Plan Assessment & Plan (1) Obesity (BMI 30-39.9): Code(s): E66.9 - Obesity, unspecified Category: Medical Plan: Wt: 127Kg (05/06) 113.6 kg (06/06) Est kcal needs as per MSJ: 3000 (40% carb, 30% protein/fat) Est fluid needs as per 25-30 ml/d: 3400 Est prot per day as per 1 g/kg bw: 114 Recommend fiber intake : 8-10 g per day and gradually increase to 25-28 g per day for women and 35-38 g for men or as tolerated Recommend sodium intake per day : less than 2000 mg Educated patient on: ( R = reviewed V = verbalizes understanding N/R = needs review N/A = not applicable * Food sources of carbohydrate, adequate serving sizes and its role in various health conditions: R * Differences between complex carbohydrates a simple carbohydrates, role of fiber in diet: R * Lean protein sources of foods: R * Differences between types of fats and role in diet (mono on saturated fat fatty acids, saturated fatty acids, trans fats): R * Food sources of sodium in salt and healthy modifications for heart health in kidney health: R V R/V * Vitamins and minerals: R in foods * Healthy plate method concept: R * Physical activity: Benefits a precaution: R * Practice mindful eating: R Patient Instructions: Continue working on reducing sugars : choose lower sugar cereals high if fiber (cheerios, bran flakes) ok to add a fruit Have a meal replacement once a day Include fish 1-2 times a week Continue physical activity and keeping hydrated by having low sugar beverages Coding Level of Care Code Nutr Indiv Subseq (57215) Diagnoses Obesity (BMI 30-39.9) E66.9 Time Spent (min) 30
--- OUTSIDE RECORDS SUMMARY | 2025-05-18 10:03 | XMS_ITS | Encounter Summary ---
Author Organization [employer] Address [address] [place] [address] Care Team Providers Care Small Equipment Operator Name Role Phone Destinee Abbott Primary Care Provider [phone] Reason for Visit * Reason Onset Date Comments tranfer pt appt 07/21/2022 Encounter Details Date Type Department Care Team ([facility] st Contact Info) Description 07/21/2022 Telephone [facility] MEDICINE [address] [place] [address] Destinee Abbott ANP [address] [place] [address] tranfer pt appt Social History Tobacco Use Types Packs/Day Years Used Date Smoking Tobacco: Never Assessed Sex and Gender Information Value Date Recorded Sex Assigned at Male 06/12/2022 10:22 AM EDT Legal Sex Male 10:22 AM EDT Gender Identity Male 06/12/2022 10:22 AM EDT Sexual Orientation Don't know 06/12/2022 10 :22 AM EDT documented as of this encounter Miscellaneous Notes * Telephone Encounter - Carole Collins - 07/21/2022 11:24 AM EST Tc from mother requesting PE appt but pt is in need of a TP appt . documented in this encounter Plan of Treatment Not on file documented as of this encounter Visit Diagnoses Not on filedocumented in this encounter Care Teams Small Equipment Operator Relationship Specialty Start Date End Date Destinee Abbott ANP [address] [place] [address] PCP - General Family Medicine 02/17/22 04/27/25 documented as of this encounter
--- OUTSIDE RECORDS SUMMARY | 2025-05-18 10:03 | XMS_ITS | Encounter Summary ---
Author Organization [facility] Address [address] [place] [address] Phone Care Team Providers Care Metal Tank Erector Name Role Phone Christine Jenkins MD Primary Care Provider [phone] Encounter Details Date Type Department Care Team (Late st Contact Info) Description 03/29/2017 Conversion Encounter [facility] [place] [address] [place] [address] Social History Tobacco Use Types Packs/Day Years [...] on filedocumented in this encounter Care Teams Metal Tank Erector Relationship Specialty Start Date End Date Christine Jenkins MD [address] [place] [address] PCP - General 03/23/17 09/20/22 documented as of this encounter
--- OUTSIDE RECORDS SUMMARY | 2025-05-18 10:03 | XMS_ITS | Clinical Summary ---
Author Organization [facility] Address [address] [place] [address] Phone Care Team Providers Care Food Service Specialist Name Role Phone Unavailable Primary Care Provider [...] nd well Other Family history of Sudden /[place] under age 55, Family history of Diabetes [...] 68 07/24/2013 12:00 AM EST Temperature 36.6 C (97.8 F) 11/13/2012 12:00 AM EDT Respiratory Rate - - Oxygen Saturation - [...] 2 - Standard) 2019 Influenza Vaccines (#1) 2025 07/24/20 13, 07/24/2012, 04/26/2011, Additional history exists COVID-19 Vaccine ( - season) 2025 HIB Vaccines Completed 05/31/2004, 06/14, 2003, Additional [...]
--- OUTSIDE RECORDS SUMMARY | 2025-05-18 10:03 | XMS_ITS | Clinical Summary ---
Author Organization [employer] Address [address] [place] [address] Care Team Providers Care Sole Cementer Name Role Phone Unavailable Primary Care Provider Unavailabl e Social History Tobacco Use Types Packs/Day Years [...] 01/17/2007, 09/22/2004, Additional history exists COVID-19 Vaccine (3 - 2025-26 season) 2025 05/01/2021, 04/08/2021 Influenza Vaccine (#1) 2025 , 05/28/2019, 05/22/2018, Additional history exists Zoster Vaccines [...]
== END 2025-05-18 09:42 | disposition home or self-care (01) ==
LOC: HO.ENCR 09:02
PROVIDERS: PCP Physician Assistant Medical; Visit Provider Dietitian, Registered
DX: E66.9 Obesity, unspecified (principal)

== ENCOUNTER → 2025-05-18 09:01 | Outpatient (BNVA) | payer OTHER, SELFPAY | PROVIDERS: PCP Physician Assistant Medical; Visit Provider Dietitian, Registered | DX: E66.9 Obesity, unspecified (principal); Z68.35 Body mass index [BMI] 35.0-35.9, adult | CPT/HCPCS: 97803 ==

== ENCOUNTER 2025-06-03 15:20 | Outpatient (AMB) | payer OTHER, SELFPAY ==
[2025-06-03 15:21] VITALS: BP 125/80; PULSE 79; TEMP 36.6; O2SAT 96; BMI 36.6
--- NOTE | 2025-06-03 15:21 | MHC.OFFWIV ---
Intake Vital Signs 06/03/25 15:21 Height 5 ft 10 in Weight 255 lb BMI 36.6 BP 125/80 Blood Pressure Location Rt brachial Position Sitting Pulse 79 Pulse Source Pulse Oximeter Temp 98 F Temp Source Oral Pulse Oximetry (%) 96 Oxygen Delivery Method Room Air Intake Visit Reasons: EP Severe lower back pain, Migraines Intake Note: Migraines started yesterday and the lower back pain which started since last Sunday. Patient Tobacco Use Status: Never used Tobacco Allergies No Known Allergies Allergy (Verified 06/03/25 15:29) Do you need a note to return to daycare/school/sports/work: No HPI HPI Comments History of Present Illness Details History - The patient is a 20-year-old male presenting with 2 chief complaints; low back pain and a migraine. - Low back pain: The patient reports experiencing low back pain following heavy lifting at work 5 days ago. - The pain is localized to the lower back and does not radiate to the buttocks, legs, or groin. - The patient has tried Aleve with temporary relief but reports that the pain persists. - No changes in urination or bowel control have been noted. - The patient experienced a migraine yesterday, which is an usual occurrence for him. - The migraine was described as not severely painful but with a sensation of pressure around the eyebrow area. - No aura was reported before the migraine. - Denies light or sound sensitivity or nausea or vomiting - He has not tried taking any medications Review of Systems - Musculoskeletal: Reports low back pain without radiation to buttocks, legs, or groin. - Neurological: Reports migraine with pressure sensation around the eyebrow, denies aura. - Genitourinary: Denies changes in urination or blood in urine. - Gastrointestinal: Denies loss of bowel control. All systems reviewed and are unremarkable except as noted in HPI Physical Exam General: cooperative, healthy appearing and comfortable, patient oriented x3 Head: Yes normal to inspection and Yes normocephalic General nose exam: Normal external nose present Face and sinus: Yes normal facial exam Effort & Inspection: normal respiratory effort and able to speak in complete sentences Back/spine: tenderness in the bilateral lumbar area, muscle spasms palpated in this area cervical, thoracic and lumbar spine normal to inspection cervical ROM normal, thoracic ROM normal, lumbar ROM normal no Cervical, thoracic or lumbar spine tenderness Extremities: moving extremities normally Neuro: A&O x3, gait normal [facility] Medical History Acanthosis nigricans Dermatitis of left ear canal Obesity (BMI 30-39.9) Hyperlipidemia Vitamin D deficiency Depression with anxiety Hepatic steatosis Surgical History History of wisdom tooth extraction Family History Paternal Grandfather Liver cancer Other Alcohol abuse Social History Housing: Apartment Patient Tobacco Use Status: Never used Tobacco e-Cigarette/Vaping Use: Never Used Second Hand Smoke Exposure: No service: No Current occupational status: employed Current occupation: maintnance Current occupational exposures/hazards: No Cognitive needs: No Hearing needs: No Vision needs: No Physical Exam Vital Signs: Last Vital Signs Temp 98 F 06/03/25 15:21 Pulse 79 06/03/25 15:21 BP 125/80 06/03/25 15:21 Pulse Ox 96 06/03/25 15:21 Oxygen Delivery Method Room Air 06/03/25 15:21 BMI result Body Mass Index 36.6 Assessment & Plan Assessment & Plan (1) Headache: Code(s): R51.9 - Headache, unspecified Qualifiers: Headache type: unspecified Headache chronicity pattern: acute headache Intractability: not intractable Qualified Code(s): R51.9 - Headache, unspecified Plan: - For migraine management, advised to start with acetaminophen 1000 mg every eight hours, ensuring adequate hydration and caffeine intake. - If migraine persists, consider adding Benadryl - Instructed to seek emergency care if there is loss of bladder or bowel control. - Advised to follow up with primary care physician if symptoms do not improve with these measures. Patient was informed and verbally consented to the use of an ambient scribe for clinic note documentation during this visit. (2) Low back pain: Code(s): M54.50 - Low back pain, unspecified Qualifiers: Chronicity: acute Back pain laterality: bilateral Sciatica presence: without sciatica Qualified Code(s): M54.50 - Low back pain, unspecified Plan: - Continue Aleve every 12 hours for three days for low back pain management. - Prescribed muscle relaxer to be taken as needed, starting with one tablet and increasing to two if necessary. - Advised to avoid alcohol and driving while taking muscle relaxers due to potential drowsiness. - Recommended [id number] topical patches for additional relief of back pain. - if no improvement in your low back pain over the next few weeks, please follow up with your PCP or return to the clinic. You may need physical therapy. - no indication for an x-ray today Medications: New cyclobenzaprine 5 mg PO Q8H PRN 20 tabs 0RF Muscle Spasm Coding Level of Care Code Est Pt Level 4 (74749) Diagnoses Acute nonintractable headache, unspecified headache type R51.9 Headache type: unspecified Headache chronicity pattern: acute headache Intractability: not intractable Acute bilateral low back pain without sciatica M54.50 Chronicity: acute Back pain laterality: bilateral Sciatica presence: without sciatica
--- OUTSIDE RECORDS SUMMARY | 2025-06-03 21:36 | XMS_ITS | Encounter Summary ---
Author Organization [employer] Address [address] [place] [address] Care Team Providers Care Public Health Sanitarian Technician Name Role Phone Destinee Abbott Primary Care Provider Reason for Visit * Reason Onset Date Comments tranfer pt appt 07/21/2022 Encounter Details Date Type Department Care Team ([facility] st Contact Info) Description 07/21/2022 Telephone [facility] MEDICINE [address] [place] [address] Destinee Abbott ANP [address] [place] [address] tranfer pt appt Social History Tobacco Use [...] on filedocumented in this encounter Care Teams Public Health Sanitarian Technician Relationship Specialty Start Date End Date Destinee Abbott ANP [address] [place] [address] PCP - General Family Medicine 02/17/22 04/27/25 documented as of this encounter
--- OUTSIDE RECORDS SUMMARY | 2025-06-03 21:36 | XMS_ITS | Clinical Summary ---
Author Organization [employer] Address [address] [place] [address] Care Team Providers Care Technology Administrator Name Role Phone Unavailable Primary Care Provider [...]
== END 2025-06-03 15:46 | disposition home or self-care (01) ==
PROVIDERS: PCP Physician Assistant Medical; Visit Provider Physician Assistant
DX: R51.9 Headache, unspecified (principal); M54.50 Low back pain, unspecified

== ENCOUNTER → 2025-06-03 15:20 | Outpatient (BNVA) | payer OTHER, SELFPAY | PROVIDERS: PCP Physician Assistant Medical; Visit Provider Physician Assistant | DX: M54.50 Low back pain, unspecified (principal); G43.909 Migraine, unspecified, not intractable, without status migrainosus | CPT/HCPCS: 99212 ==